=== PATIENT | female | born 1975 | race Caucasian/White ===

== ENCOUNTER 2018-01-20 05:55 | Day surgery (SDC) | payer OTHER ==
[~2018-01-20] VITALS: Ht 165.1 cm; Wt 88.0 kg
[~2018-01-20 05:55] MED LIST: AMITRIPTYLINE H10 MG PO; CALCIUM500 MG PO; IRON18 MG PO; LABETALOL HCL100 MG PO; PRENATAL TABLE1 EAC1 PO; ZYRTEC10 MG PO
[2018-01-20] MEDS ORDERED: ADVIL200 MG PO (06:13)
[2018-01-20] MEDS ORDERED: TYLENOL EXTRA500 MG PO (06:13)
--- NOTE | 2018-01-20 09:50 | NUR ---
01/20/18 0950 Antwan Hawthorne 0927 PT ARRIVED TO PACU, ORAL AIRWAY IN PLACE WITH ASSIST NEEDED. MACHINE II TRIMMER REPORT GIVEN. PT ON 10L VIA MASK. ORDER FOR RACEMIC EPI GIVEN. 929 RECEMIC EPI STARTED. 933 SUGAMMADEX 200 MG GIVEN BY MACHINE II TRIMMER. PT PLACED IN SUPINE POSITION TO AID BREATHING. 0945 PT ROUSING TO VOICE AND STIMULI. ORAL AIRWAY STILL IN PLACE. 2 RN'S AND STUDENT AT BEDSIDE.
--- NOTE | 2018-01-20 11:18 | NUR ---
ICED WATER GIVEN. PT TAKES SIPS AND TOLERATES THAT WELL. MARIMAR NICHOLS ON WARM. CALL LIGHT W/IN REACH.
[2018-01-20] MEDS ORDERED: MOTRIN IB200 MG PO (12:12)
[2018-01-20] MEDS ORDERED: PERCOCET 5-3251 EACH PO (12:13)
--- NOTE | 2018-01-20 12:20 | NUR ---
MORE ICED WATER GIVEN. SOUP GIVEN. FAMILY @ BS. PT IS AWAKE AND CONVERSING WITH FAMILY. DR. BENJAMIN AND DOT CAREY IN TO SPEAK W/PATIENT AND HER QUESTIONS ARE ANSWERED. NGUYEN CATHETER IS REMOVED AFTER BALLOON BEING DEFLATED AND PT TOLERATES REMOVAL OF THAT WELL. 800 ML CLEAR, BRIGHT YELLOW URINE NOTED TO NGUYEN OVERNIGHT BAG.
--- NOTE | 2018-01-20 12:34 | NUR ---
OXYGEN SATURATION REMAINS 100% OXYGEN REMOVED @ THIS TIME.
--- NOTE | 2018-01-20 13:24 | NUR ---
LE 1300: PT UP OOB WITH STANDBY ASSIST TO THE RESTROOM. PT IS IN THE RESTROOM FOR QUITE A WHILE, CHECKED ON HER AND SHE REPORTED SHE WAS FINE. WAS IN THE RESTROOM WITH HER. SHE WAS ABLE TO URINATE 400ML OF DARK YELLOW URINE. SHE STATES THAT SHE IS STILL FEELING A LITTLE WOOZY AND IS WAITING TO WAKE UP MORE, SHE IS EDUCATED THAT SHE WILL FEEL SLEEPY THE REST OF THE DAY. PT OFFERED A PAIN PILL, SHE ACCEPTS RATING HER PAIN A 1/10, JUST SO SHE HAS SOMETHING ON BOARD WHEN SHE GOES HOME.
--- NOTE | 2018-01-20 14:08 | NUR ---
PT HAS MET [facility]. SHE IS GIVEN VERBAL INSTRUCTIONS IN THE PRESENCE OF HER . THEY ARE GIVEN THE OPPORTUNITY TO ASK QUESTIONS. SHE IS EDUCATED ON HOW BEST TO DRESS HERSELF AND TO OPEN THE CURTAIN WHEN SHE IS READY TO GO. SHE IS WHEELED OUT TO THE CAR.
--- NOTE | 2018-01-26 08:33 | OR ---
[facility] [address], [place] [address] Signed DATE OF OPERATION: 01/20/2018 SURGEON: Sadie Grimm MD JAVA [id number] SOFTWARE ENGINEER: Arjun Schumacher MD PREOPERATIVE DIAGNOSES: Menometrorrhagia, submucous fibroid, vaginal polyp. POSTOPERATIVE DIAGNOSES: Menometrorrhagia, submucous fibroid, vaginal polyp with mild pelvic endometriosis. PROCEDURES: Total laparoscopic hysterectomy, bilateral salpingectomy, removal of vaginal polyp, and cystoscopy. ANESTHESIA: General ET. ESTIMATED BLOOD LOSS: 50 mL. DRAINS: Dugan catheter. INDICATIONS AND FINDINGS: The patient is a 42-year-old female, currently using Depo for control, has been having abnormal bleeding. This failed to respond to a trial of estradiol. Further evaluation was done and she appeared to have a submucosal fibroid, which was contributing to this tissue. At this point, she desired definitive treatment. The patient also was noted to have a large vaginal polyp, which had been present for quite some time and she also wished this to be removed at the same time. At the time of surgery, she was found to have approximately 4 cm polyp with a very thick base of approximately 3 cm, which was slightly behind and to the right of the cervix. On laparoscopy, she had some mild endometriosis on the patient's left anterior sidewall as well as near the left uterosacral ligament. There is also evidence of some fibroid involvement of the uterus and it was approximately 10 week size. The patient's right tube was somewhat tethered and stretched quite deeply into the right lower quadrant. Electronically Signed By: SADIE GRIMM MD 01/26/18 0833 PATIENT NAME: CAMRON MEADE OPERATIVE REPORT DATE OF : 75 REPORT #: [id number] PHYSICIAN: SADIE GRIMM MD PCP: JENNI DOYLE REPORT IS CONFIDENTIAL AND NOT TO BE RELEASED WITHOUT AUTHORIZATION [facility] [address], [place] [address] Signed DESCRIPTION OF PROCEDURE: The patient was prepped and draped in the dorsal lithotomy position. A weighted speculum was placed and the anterior lip of the cervix was visualized and grasped with a single-tooth tenaculum. The polyp posterior to the cervix was then also grasped with a single-tooth tenaculum. Because of the size of the base, pursestring suture of 2-0 Vicryl was placed around the base and this was tied down. The specimen was then excised with a knife. Additional sutures of 2-0 Vicryl were used to try to cover this exposed base and to assure hemostasis. Following this, the uterus was sounded to 10 cm. The endocervical canal was then easily dilated and the VCare cannula was placed. The balloon was inflated at the fundus. The tenaculum and speculum were removed and the cup was fitted over the cervix and a locking cap fitted into place. Attention was then directed to the abdomen. The infraumbilical area was injected with 0.5% Marcaine plain. An incision was made with a knife and then each layer was serially elevated and incised until the fascia was opened and identified. Stay sutures were placed. The Tresa cannula was then placed and tied into place and the balloon inflated as well. Placement of the scope confirmed proper positioning. CO2 was then introduced into the abdomen. The pelvis was visualized. It was felt that the planned procedure was appropriate. Secondary ports were placed in the mid lateral quadrants. On the left side, there was a 5 mm port and the right was a Veress needle followed by the expanding port. Each of these were placed under direct vision. Following this, the LigaSure [place] device was used to serially coagulate the patient's left tube and remove this. The patient's left utero-ovarian ligament and round ligament were then serially coagulated and divided. The peritoneum was then opened anteriorly and taken across the anterior cervix allowing for a partial bladder flap. The peritoneum was taken down posteriorly in the same manner. The uterine vessels were then skeletonized and coagulated multiple times and then divided. Further dissection was done both posterior and anterior at this time. Following this, the pelvis was irrigated, inspected, and attention was then directed to the patient's right side. The patient's left tube, utero-ovarian pedicle, and round ligament were serially coagulated and divided. The anterior leaf of the peritoneum on the patient's right was then incised creating the remaining bladder flap. The peritoneum was taken down posteriorly as well. The uterine vessels were then skeletonized and coagulated multiple times and then divided. Further dissection was done both posterior and anteriorly. At this point, the cup could be identified circumferentially. It was felt that it was ready to be removed. The specimen was removed using the Sonicision beginning posteriorly, wrapping around the patient's left side anteriorly and then starting again posteriorly and wrapping around the patient's right side anteriorly. Following this, the specimen was removed from the vagina and the vaginal vault was packed with a lap tape in a glove to allow the pneumoperitoneum to be created. Attention was directed above and the abdomen was copiously irrigated and inspected with good hemostasis noted. Some coagulation was done near the patient's right uterine pedicles for some light bleeding. The cuff was then closed using the Electronically Signed By: SADIE GRIMM MD 01/26/18 0833 PATIENT NAME: CAMRON MEADE OPERATIVE REPORT DATE OF : 75 REPORT #: [id number] PHYSICIAN: SADIE GRIMM MD PCP: JENNI DOYLE REPORT IS CONFIDENTIAL AND NOT TO BE RELEASED WITHOUT AUTHORIZATION [facility] [address], [place] [address] Signed Endoclose. This was begun from the patient's right uterosacral ligament incorporating the vaginal mucosa both posterior and anteriorly running across to nearly the left uterosacral and the 1st suture broke. At this point, a new suture was placed beginning medial to this suture begun posteriorly, incorporating the anterior and posterior peritoneum and vaginal mucosa and run to the patient's left uterosacral ligament and back to the center. The abdomen was then copiously irrigated, inspected, and the cuff appeared to be hemostatic. Attention was then directed to the patient's right tube, which had been stretched out into the patient's right lower quadrant. This was removed along the mesosalpinx. Additional cautery was needed near the very apex of this for control of some bleeding. There was no evidence of any bowel adherent to the tube. Following this, the abdomen was reinspected. There just appeared to be kind of some raw area around that removal of the right tube and Evicel was sprinkled over this area as well as the remaining over the cuff to ensure hemostasis. The gas was allowed to be expressed from the abdomen, and the instruments were removed. The fascia was re-identified at the umbilicus and was closed in a running suture of 0 Vicryl. The stay sutures were tied across as well. The skin incisions were closed with subcuticular sutures of the 3-0 Vicryl Rapide. Attention was directed down below and the pack was removed from the vagina and the Dugan catheter was removed. The patient had received fluorescein. The cystoscope was placed followed by the 30-degree scope and the bladder was thoroughly evaluated. There was no evidence of any injury to the bladder. Both ureters were seen to freely egress clear fluorescein stained urine. Following this, the bladder was drained with removal of the cystoscope and the Dugan catheter was replaced. All sponge and needle counts were correct. She tolerated the procedure well and was taken to the recovery room in good condition. Sadie Grimm MD PJW/MODL /[id number] cc: Arjnu Schumacher MD Copies: ARJUN SCHUMACHER MD Electronically Signed By: SADIE GRIMM MD 01/26/18 0833 PATIENT NAME: CAMRON MEADE OPERATIVE REPORT DATE OF : 75 REPORT #: [id number] PHYSICIAN: SADIE GRIMM MD PCP: JENNI DOYLE REPORT IS CONFIDENTIAL AND NOT TO BE RELEASED WITHOUT AUTHORIZATION [facility] [address] [place] [address] [place] [address] Signed ~ Electronically Signed By: SADIE GRIMM MD 01/26/18 0833 PATIENT NAME: CAMRON MEADE OPERATIVE REPORT DATE OF : 75 REPORT #: [id number] PHYSICIAN: SADIE GRIMM MD PCP: JENNI DOYLE REPORT IS CONFIDENTIAL AND NOT TO BE RELEASED WITHOUT AUTHORIZATION
== END 2018-01-20 14:05 | disposition home or self-care (01) ==
LOC: DS 05:55
PROVIDERS: Obstetrics & Gynecology
PROC: 0UT94ZZ Resection of Uterus, Percutaneous Endoscopic Approach (ICD-10-PCS; principal; 2018-01-20 06:45)
PROC: 0UT74ZZ Resection of Bilateral Fallopian Tubes, Percutaneous Endoscopic Approach (ICD-10-PCS; 2018-01-20 06:45)
PROC: 0UBG7ZZ Excision of Vagina, Via Natural or Artificial Opening (ICD-10-PCS; 2018-01-20 06:45)
DX: N87.9 Dysplasia of cervix uteri, unspecified (principal); N72 Inflammatory disease of cervix uteri; N88.8 Other specified noninflammatory disorders of cervix uteri; N84.2 Polyp of vagina; M54.5 Low back pain; G89.29 Other chronic pain; M54.2 Cervicalgia; K21.9 Gastro-esophageal reflux disease without esophagitis; I10 Essential (primary) hypertension; E66.9 Obesity, unspecified; J45.909 Unspecified asthma, uncomplicated; Z79.899 Other long term (current) drug therapy; Z87.891 Personal history of nicotine dependence; Z88.1 Allergy status to other antibiotic agents; Z88.4 Allergy status to anesthetic agent; Z88.8 Allergy status to other drugs, medicaments and biological substances; Z98.890 Other specified postprocedural states
CPT/HCPCS: 00840; J0330; J1100; J1644; J1885; J1956; J2250; J2405; J2704; J2710; J2765; J3010; J7120